=== PATIENT | male | born 1950 | race African-American/Black ===

== ENCOUNTER 2018-10-19 11:53 | Inpatient (IN) | payer MEDICARE ==
[~2018-10-19] VITALS: Ht 177.8 cm; Wt 85.3 kg
[2018-10-19] MEDS ORDERED: AMLO2.5T45 PO (11:57)
[2018-10-19] MEDS ORDERED: SODIUM CHLORIDE 0.9% 1000ML BAG (SEPSIS BOLUS) IV ONE (15:00)
[2018-10-19 15:08] LABS: HEMATOCRIT. 41.2 % (42.0-52.0); HEMOGLOBIN. 13.5 g/dL (14.0-18.0); MEAN CORPUSCULAR HEMOGLOBIN 30.5 pg (28.0-32.0); MEAN CORPUSCULAR VOLUME 93.1 fL (80.0-94.0); MEAN PLATELET VOLUME 10.7 fl (7.4-10.4); PLATELET 74 x1000/uL (130-400); RED BLOOD CELL COUNT 4.42 mill/uL (4.7-6.1); RED CELL DISTRIBUTION WIDTH 14.4 % (11.6-14.6)
[2018-10-19 15:15] LABS: CHLORIDE 98 mEq/L (98-107)
[2018-10-19 15:23] LABS: INR 1.5; PROTHROMBIN TIME 14.8 sec (9.1-11.1)
[2018-10-19 15:29] LABS: PLATELET ESTIMATE DECREASED
[2018-10-19] MEDS ORDERED: PIPERACILLIN/TAZ 3.375G PREMIX 50 ML IV ONE (16:00)
[2018-10-19] MEDS ORDERED: VANCOMYCIN 1 G PREMIX 200 ML IV ONE (16:00)
[2018-10-19] MEDS ORDERED: ENOXAPARIN 40MG/0.4ML SYR SUBCUT SCH (19:15)
[2018-10-19] MEDS ORDERED: DOCUSATE SODIUM 100MG CAPSULE PO PRN (19:15)
[2018-10-19] MEDS ORDERED: PIPERACILLIN/TAZ 3.375G PREMIX 50 ML IV SCH (19:15)
[2018-10-19] MEDS ORDERED: ACETAMINOPHEN 325MG TABLET PO PRN (19:15)
[2018-10-19] MEDS ORDERED: ONDANSETRON HCL 4MG/2ML INJ IV PRN (19:15)
[2018-10-19] MEDS ORDERED: GUAIFENESIN 200MG/10ML SUGAR FREE UDC PO PRN (19:15)
[2018-10-19] MEDS ORDERED: ENOXAPARIN 30MG/0.3ML SYR SUBCUT SCH ×2 (19:30→19:45)
[2018-10-19 20:13] LABS: CLARITY URINE CLOUDY (CLEAR); COLOR URINE YELLOW (YELLOW); KETONES URINE NEGATIVE (NEGATIVE); LEUKOCYTE ESTERASE URINE 2+ (NEGATIVE); NITRITE URINE NEGATIVE (NEGATIVE); OCCULT BLOOD URINE 3+ (NEGATIVE); PROTEIN URINE NEGATIVE (NEGATIVE); SPECIFIC GRAVITY URINE 1.014 (1.005-1.030); UROBILINOGEN URINE 0.2 E.U./dL (0.2-1.0)
[2018-10-19 23:27] LABS: CREATINE KINASE MB FRACTION 6.8 ng/mL (0.5-3.6)
[2018-10-20] VITALS (12 sets, daily range): BP systolic 115–150; BP diastolic 74–102
[2018-10-20] MEDS: PIPERACILLIN/TAZ 2.25G PREMIX 50 ML IV SCH ×3 (05:12→21:13)
[2018-10-20] MEDS: SODIUM CHLORIDE 0.9% 1,000 ML IV SCH ×3 (05:13→21:13)
[2018-10-20] MEDS ORDERED: NAPR-677 PO (06:50)
[2018-10-20] MEDS ORDERED: TAMS-11 PO (06:50)
[2018-10-20] MEDS ORDERED: VANCOMYCIN 750 MG PREMIX 150 ML IV SCH (10:30)
[2018-10-20 12:40] LABS: HEMATOCRIT. 35.4 % (42.0-52.0); HEMOGLOBIN. 11.7 g/dL (14.0-18.0); MEAN CORPUSCULAR HEMOGLOBIN 30.2 pg (28.0-32.0); MEAN PLATELET VOLUME 10.8 fl (7.4-10.4); PLATELET 80 x1000/uL (130-400); RED BLOOD CELL COUNT 3.89 mill/uL (4.7-6.1); RED CELL DISTRIBUTION WIDTH 14.3 % (11.6-14.6)
[2018-10-20 13:18] LABS: PLATELET ESTIMATE DECREASED
[2018-10-20 13:23] LABS: CHLORIDE 106 mEq/L (98-107)
[2018-10-20 13:30] LABS: LDL CHOLESTEROL 87 mg/dL (5-100)
[2018-10-20 13:31] LABS: HDL CHOLESTEROL 43 mg/dL (40-59)
[2018-10-20 13:35] LABS: CREATINE KINASE MB FRACTION 10.4 ng/mL (0.5-3.6)
[2018-10-20 14:01] LABS: CREATINE KINASE 1174 IU/L (39-308)
[2018-10-20] MEDS: HYDROMORPHONE HCL/PF 2MG/ML CPJ IV PRN (21:42)
[2018-10-21] VITALS (14 sets, daily range): BP systolic 110–134; BP diastolic 77–87
[2018-10-21] MEDS: PIPERACILLIN/TAZ 2.25G PREMIX 50 ML IV SCH ×3 (06:44→20:21)
[2018-10-21] MEDS: SODIUM CHLORIDE 0.9% 1,000 ML IV SCH (06:44)
[2018-10-21] MEDS: AMLODIPINE 10MG TABLET PO SCH (07:53)
[2018-10-21] MEDS: TAMSULOSIN HCL 0.4MG SR CAPSULE PO SCH (07:54)
[2018-10-21 09:12] LABS: HEMATOCRIT. 36.1 % (42.0-52.0); HEMOGLOBIN. 11.9 g/dL (14.0-18.0); MEAN CORPUSCULAR HEMOGLOBIN 30.3 pg (28.0-32.0); MEAN CORPUSCULAR VOLUME 91.9 fL (80.0-94.0); PLATELET 88 x1000/uL (130-400); RED BLOOD CELL COUNT 3.93 mill/uL (4.7-6.1); RED CELL DISTRIBUTION WIDTH 14.2 % (11.6-14.6)
[2018-10-21 09:42] LABS: T4 FREE 1.28 ng/dL (0.76-1.46)
[2018-10-21 10:43] LABS: PLATELET ESTIMATE DECREAS
[2018-10-21] MEDS: SODIUM CHLORIDE 0.45% 1,000 ML IV SCH ×2 (10:43→22:15)
[2018-10-21] MEDS ORDERED: LIDOCAINE HCL 1% 20ML VIAL (Pyxis) INJ ONE (13:25)
[2018-10-21] MEDS ORDERED: SODIUM BICARBONATE 4% (2.4MEQ) 5ML VIAL IV ONE (13:25)
[2018-10-21] MEDS ORDERED: IOHEXOL-300 100 ML BOTTLE ONE (13:26)
[2018-10-21 14:15] LABS: FOLIC ACID (FOLATE) SERUM 8.8 ng/mL (>5.38); T4 FREE 1.21 ng/dL (0.76-1.46)
[2018-10-21 15:58] LABS: CREATINE KINASE MB FRACTION 3.2 ng/mL (0.5-3.6)
[2018-10-21 19:06] LABS: ANTI-NUCLEAR ANTIBODIES DIRECT Negative (Negative)
[2018-10-21] MEDS: HYDROMORPHONE HCL/PF 2MG/ML CPJ IV PRN (20:21)
[2018-10-22] VITALS (13 sets, daily range): BP systolic 109–141; BP diastolic 75–93
[2018-10-22] MEDS: PIPERACILLIN/TAZ 2.25G PREMIX 50 ML IV SCH ×4 (02:27→20:15)
[2018-10-22 04:16] LABS: COMPLEMENT C3 139 mg/dL (82-167)
[2018-10-22 07:01] LABS: HEMATOCRIT. 33.8 % (42.0-52.0); HEMOGLOBIN. 11.4 g/dL (14.0-18.0); MEAN CORPUSCULAR VOLUME 92.3 fL (80.0-94.0); MEAN PLATELET VOLUME 11.2 fl (7.4-10.4); PLATELET 107 x1000/uL (130-400); RED BLOOD CELL COUNT 3.66 mill/uL (4.7-6.1); RED CELL DISTRIBUTION WIDTH 14.2 % (11.6-14.6)
[2018-10-22 07:45] LABS: CREATINE KINASE MB FRACTION 1.6 ng/mL (0.5-3.6)
[2018-10-22] MEDS: TAMSULOSIN HCL 0.4MG SR CAPSULE PO SCH (08:03)
[2018-10-22] MEDS: AMLODIPINE 10MG TABLET PO SCH (08:04)
[2018-10-22] MEDS: DEXTROSE 5% WATER 1,000 ML IV SCH ×2 (08:58→20:15)
[2018-10-22] MEDS ORDERED: POTASSIUM CHLORIDE 20MEQ TABLET SR PO NR (12:00)
[2018-10-22] MEDS: HYDROMORPHONE HCL/PF 2MG/ML CPJ IV PRN (19:40)
[2018-10-23] VITALS (12 sets, daily range): BP systolic 12–157; BP diastolic 71–100
[2018-10-23] MEDS: PIPERACILLIN/TAZ 2.25G PREMIX 50 ML IV SCH ×2 (03:01→10:20)
[2018-10-23] MEDS: DEXTROSE 5% WATER 1,000 ML IV SCH ×2 (05:43→16:18)
[2018-10-23 07:14] LABS: CHLORIDE 120 mEq/L (98-107)
[2018-10-23 07:15] LABS: EOSINOPHILS % 0.2 % (0.0-5.0); HEMATOCRIT. 35.2 % (42.0-52.0); HEMOGLOBIN. 11.6 g/dL (14.0-18.0); LYMPHOCYTES % 7.4 % (20.0-50.0); MEAN CORPUSCULAR HEMOGLOBIN 30.6 pg (28.0-32.0); MEAN CORPUSCULAR VOLUME 92.7 fL (80.0-94.0); MEAN PLATELET VOLUME 10.4 fl (7.4-10.4); MONOCYTES % 6.4 % (2.0-8.0); PLATELET 122 x1000/uL (130-400); RED CELL DISTRIBUTION WIDTH 14.3 % (11.6-14.6)
[2018-10-23] MEDS: AMLODIPINE 10MG TABLET PO SCH (08:50)
[2018-10-23] MEDS: TAMSULOSIN HCL 0.4MG SR CAPSULE PO SCH (08:50)
[2018-10-23 10:24] LABS: PLATELET ESTIMATE SLIGHTLY DECREASED
[2018-10-23] MEDS ORDERED: POTASSIUM CHLORIDE 20MEQ TABLET SR PO NR (16:00)
[2018-10-23] MEDS: PIPERACILLIN/TAZ 3.375G PREMIX 50 ML IV SCH (16:18)
[2018-10-23] MEDS: HYDROMORPHONE HCL/PF 2MG/ML CPJ IV PRN (21:22)
[2018-10-24] VITALS (12 sets, daily range): BP systolic 97–149; BP diastolic 68–101
[2018-10-24] MEDS: PIPERACILLIN/TAZ 3.375G PREMIX 50 ML IV SCH ×5 (00:55→21:48)
[2018-10-24] MEDS: DEXTROSE 5% WATER 1,000 ML IV SCH ×3 (03:44→20:52)
[2018-10-24 06:21] LABS: BASOPHILS % 0.4 % (0.0-2.0); EOSINOPHILS % 0.8 % (0.0-5.0); HEMATOCRIT. 33.4 % (42.0-52.0); HEMOGLOBIN. 10.9 g/dL (14.0-18.0); LYMPHOCYTES % 7.3 % (20.0-50.0); MEAN CORPUSCULAR HEMOGLOBIN 30.9 pg (28.0-32.0); MEAN CORPUSCULAR VOLUME 94.3 fL (80.0-94.0); MEAN PLATELET VOLUME 10.4 fl (7.4-10.4); MONOCYTES % 5.2 % (2.0-8.0); NEUTROPHILS % 86.3 % (40.0-76.0); PLATELET 119 x1000/uL (130-400); RED BLOOD CELL COUNT 3.55 mill/uL (4.7-6.1); RED CELL DISTRIBUTION WIDTH 14.3 % (11.6-14.6)
[2018-10-24 07:11] LABS: CHLORIDE 123 mEq/L (98-107)
[2018-10-24] MEDS: AMLODIPINE 10MG TABLET PO SCH (08:40)
[2018-10-24] MEDS: TAMSULOSIN HCL 0.4MG SR CAPSULE PO SCH (08:40)
[2018-10-24] MEDS: DESMOPRESSIN ACETATE 4MCG/ML AMP SUBCUT SCH ×2 (09:30→21:00)
[2018-10-25] VITALS (12 sets, daily range): BP systolic 111–157; BP diastolic 72–98
[2018-10-25] MEDS: HYDROMORPHONE HCL/PF 2MG/ML CPJ IV PRN (01:58)
[2018-10-25] MEDS: PIPERACILLIN/TAZ 3.375G PREMIX 50 ML IV SCH ×4 (03:04→22:17)
[2018-10-25 06:55] LABS: BASOPHILS % 0.1 % (0.0-2.0); EOSINOPHILS % 1.8 % (0.0-5.0); HEMATOCRIT. 27.2 % (42.0-52.0); LYMPHOCYTES % 8.4 % (20.0-50.0); MEAN CORPUSCULAR HEMOGLOBIN 30.9 pg (28.0-32.0); MEAN CORPUSCULAR VOLUME 93.3 fL (80.0-94.0); MEAN PLATELET VOLUME 10.3 fl (7.4-10.4); MONOCYTES % 4.2 % (2.0-8.0); NEUTROPHILS % 85.5 % (40.0-76.0); PLATELET 115 x1000/uL (130-400); RED BLOOD CELL COUNT 2.92 mill/uL (4.7-6.1); RED CELL DISTRIBUTION WIDTH 14.5 % (11.6-14.6)
[2018-10-25 07:08] LABS: CHLORIDE 118 mEq/L (98-107)
[2018-10-25] MEDS ORDERED: POTASSIUM CHLORIDE 20MEQ/PACKET PO NR (07:35)
[2018-10-25] MEDS: DESMOPRESSIN ACETATE 4MCG/ML AMP SUBCUT SCH ×2 (08:02→22:03)
[2018-10-25] MEDS: TAMSULOSIN HCL 0.4MG SR CAPSULE PO SCH (08:02)
[2018-10-25] MEDS: AMLODIPINE 10MG TABLET PO SCH (09:00)
[2018-10-25] MEDS: DEXTROSE 5% WATER 1,000 ML IV SCH ×2 (14:24→17:00)
[2018-10-25] MEDS: PANTOPRAZOLE SODIUM 40 MG/VIAL IV SCH (22:18)
[2018-10-25] MEDS ORDERED: HYDROMORPHONE HCL/PF 2MG/ML CPJ IV PRN (23:45)
[2018-10-26] VITALS (11 sets, daily range): BP systolic 110–140; BP diastolic 66–84
[2018-10-26] MEDS: DEXTROSE 5% WATER 1,000 ML IV SCH (01:49)
[2018-10-26] MEDS: PIPERACILLIN/TAZ 3.375G PREMIX 50 ML IV SCH ×2 (03:04→08:57)
[2018-10-26] MEDS: LORAZEPAM 2MG/ML CPJ IV PRN ×2 (05:26→23:12)
[2018-10-26 07:21] LABS: BASOPHILS % 0.1 % (0.0-2.0); EOSINOPHILS % 2.4 % (0.0-5.0); HEMATOCRIT. 27.4 % (42.0-52.0); HEMOGLOBIN. 8.8 g/dL (14.0-18.0); LYMPHOCYTES % 10.6 % (20.0-50.0); MEAN CORPUSCULAR VOLUME 93.8 fL (80.0-94.0); MEAN PLATELET VOLUME 10.3 fl (7.4-10.4); MONOCYTES % 4.4 % (2.0-8.0); NEUTROPHILS % 82.5 % (40.0-76.0); PLATELET 134 x1000/uL (130-400); RED BLOOD CELL COUNT 2.92 mill/uL (4.7-6.1); RED CELL DISTRIBUTION WIDTH 14.2 % (11.6-14.6)
[2018-10-26 07:31] LABS: CHLORIDE 110 mEq/L (98-107)
[2018-10-26] MEDS ORDERED: SODIUM CHLORIDE 0.9% 1,000 ML IV SCH (07:45)
[2018-10-26 07:48] LABS: HEPATITIS B SURFACE ANTIGEN NEGATIVE
[2018-10-26 07:49] LABS: PHOSPHORUS 2.7 mg/dL (2.5-4.9)
[2018-10-26] MEDS: TAMSULOSIN HCL 0.4MG SR CAPSULE PO SCH (08:57)
[2018-10-26] MEDS: PANTOPRAZOLE SODIUM 40 MG/VIAL IV SCH (08:57)
[2018-10-26] MEDS: AMLODIPINE 10MG TABLET PO SCH (08:58)
[2018-10-26] MEDS ORDERED: PANTOPRAZOLE SODIUM 40 MG/VIAL IV SCH (09:00)
[2018-10-26] MEDS: CEFEPIME 1,000 MG in DEXTROSE 5% WATER 50 ML IV SCH (14:20)
[2018-10-26] MEDS: METRONIDAZOLE 500 MG PREMIX 100 ML IV SCH (14:33)
[2018-10-26] MEDS: QUETIAPINE FUMARATE 25MG TABLET PO SCH (20:50)
[2018-10-27] VITALS (7 sets, daily range): BP systolic 119–154; BP diastolic 70–91
[2018-10-27] MEDS: CEFEPIME 1,000 MG in DEXTROSE 5% WATER 50 ML IV SCH ×2 (01:15→12:33)
[2018-10-27] MEDS: METRONIDAZOLE 500 MG PREMIX 100 ML IV SCH ×2 (02:14→13:13)
[2018-10-27 06:22] LABS: BASOPHILS % 0.2 % (0.0-2.0); EOSINOPHILS % 1.8 % (0.0-5.0); HEMATOCRIT. 28.4 % (42.0-52.0); HEMOGLOBIN. 9.2 g/dL (14.0-18.0); LYMPHOCYTES % 9.9 % (20.0-50.0); MEAN CORPUSCULAR HEMOGLOBIN 30.5 pg (28.0-32.0); MEAN CORPUSCULAR VOLUME 93.5 fL (80.0-94.0); MEAN PLATELET VOLUME 10.1 fl (7.4-10.4); MONOCYTES % 4.2 % (2.0-8.0); NEUTROPHILS % 83.9 % (40.0-76.0); PLATELET 164 x1000/uL (130-400); RED BLOOD CELL COUNT 3.04 mill/uL (4.7-6.1)
[2018-10-27 06:40] LABS: CHLORIDE 111 mEq/L (98-107)
[2018-10-27] MEDS ORDERED: POTASSIUM CHLORIDE 20MEQ/PACKET PO NR (07:45)
[2018-10-27] MEDS: TAMSULOSIN HCL 0.4MG SR CAPSULE PO SCH (08:10)
[2018-10-27] MEDS: QUETIAPINE FUMARATE 25MG TABLET PO SCH ×2 (08:10→21:12)
[2018-10-27] MEDS: PANTOPRAZOLE SODIUM 40 MG/VIAL IV SCH (08:10)
[2018-10-27] MEDS: AMLODIPINE 10MG TABLET PO SCH (08:10)
[2018-10-28] VITALS (9 sets, daily range): BP systolic 98–139; BP diastolic 72–92
[2018-10-28] MEDS: CEFEPIME 1,000 MG in DEXTROSE 5% WATER 50 ML IV SCH ×2 (01:08→12:37)
[2018-10-28] MEDS: METRONIDAZOLE 500 MG PREMIX 100 ML IV SCH ×2 (02:20→13:49)
[2018-10-28 08:21] LABS: BASOPHILS % 0.2 % (0.0-2.0); EOSINOPHILS % 1.3 % (0.0-5.0); HEMATOCRIT. 27.6 % (42.0-52.0); HEMOGLOBIN. 9.1 g/dL (14.0-18.0); LYMPHOCYTES % 10.6 % (20.0-50.0); MEAN CORPUSCULAR HEMOGLOBIN 30.5 pg (28.0-32.0); MEAN CORPUSCULAR VOLUME 92.9 fL (80.0-94.0); MEAN PLATELET VOLUME 9.7 fl (7.4-10.4); MONOCYTES % 4.3 % (2.0-8.0); NEUTROPHILS % 83.6 % (40.0-76.0); PLATELET 200 x1000/uL (130-400); RED BLOOD CELL COUNT 2.97 mill/uL (4.7-6.1)
[2018-10-28] MEDS: TAMSULOSIN HCL 0.4MG SR CAPSULE PO SCH (08:25)
[2018-10-28] MEDS: PANTOPRAZOLE SODIUM 40 MG/VIAL IV SCH (08:25)
[2018-10-28] MEDS: AMLODIPINE 10MG TABLET PO SCH (08:26)
[2018-10-28] MEDS: QUETIAPINE FUMARATE 25MG TABLET PO SCH (08:26)
[2018-10-28 08:30] LABS: CHLORIDE 112 mEq/L (98-107)
== END 2018-10-28 20:09 | DRG 853 ==
LOC: ER 12:37 → 3WST 16:01 → EDBEDREQSVC 16:16 → EDBEDREQ 16:16 → SUPCPDRO 19:01 → CANRESERV 10-20 → ENRESERV 10-20 → EDBEDREQSVC 10-20 01:08 → ENRESERV 10-20 02:20 → 3WST 10-20 04:26
PROVIDERS: ADMIT Hospitalist; ATTEND Hospitalist
PROC: 06H03DZ Insertion of Intraluminal Device into Inferior Vena Cava, Percutaneous Approach (ICD-10-PCS; 2018-10-21)
PROC: B5191ZA Fluoroscopy of Inferior Vena Cava using Low Osmolar Contrast, Guidance (ICD-10-PCS; 2018-10-21)
PROC: B549ZZA Ultrasonography of Inferior Vena Cava, Guidance (ICD-10-PCS; 2018-10-21)
PROC: 4A00X4Z Measurement of Central Nervous Electrical Activity, External Approach (ICD-10-PCS; principal; 2018-10-24)
DX: A41.9 Sepsis, unspecified organism (principal); G92 Toxic encephalopathy; I26.99 Other pulmonary embolism without acute cor pulmonale; N17.9 Acute kidney failure, unspecified; D68.9 Coagulation defect, unspecified; M62.82 Rhabdomyolysis; D68.59 Other primary thrombophilia; E87.0 Hyperosmolality and hypernatremia; I47.2 Ventricular tachycardia; E44.1 Mild protein-calorie malnutrition; N13.6 Pyonephrosis; I82.412 Acute embolism and thrombosis of left femoral vein; I82.432 Acute embolism and thrombosis of left popliteal vein; K92.1 Melena; N32.0 Bladder-neck obstruction; D69.6 Thrombocytopenia, unspecified; D64.9 Anemia, unspecified; R33.8 Other retention of urine; E87.6 Hypokalemia; E78.5 Hyperlipidemia, unspecified; K59.00 Constipation, unspecified; R26.9 Unspecified abnormalities of gait and mobility; I10 Essential (primary) hypertension; N32.89 Other specified disorders of bladder; N40.1 Benign prostatic hyperplasia with lower urinary tract symptoms; Y93.89 Activity, other specified; W18.30XA Fall on same level, unspecified, initial encounter; Y92.89 Other specified places as the place of occurrence of the external cause; Y99.8 Other external cause status; Z78.1 Physical restraint status; Z68.27 Body mass index [BMI] 27.0-27.9, adult; Z79.899 Other long term (current) drug therapy
CPT/HCPCS: 36415; 37191; 70551; 71045; 74176; 76770; 78582; 80048; 80061; 80202; 82140; 82270; 82550; 82553; 82607; 82746; 82962; 83036; 83605; 83735; 83880; 83930; 84100; 84145; 84153; 84295; 84439; 84443; 84481; 84484; 85362; 85379; 85384; 86038; 86160; 86803; 87340; 93005; 93306; 93970; 96365; 97116; 97162; 97166; 99291; A9558; C1725; C1880; C1893; C9113; J0692; J1170; J1644; J2060; J2543; J2597; J3370; J3490; J7030; J7050; J7060; J7070; Q9967; A4315; G0103